=== PATIENT | female | born 1975 | race Caucasian/White ===

== ENCOUNTER 2022-02-16 17:46 | Observation (INO) | payer SELFPAY ==
[~2022-02-16] VITALS: Ht 152.4 cm; Wt 98.4 kg
[2022-02-16 18:58] LABS: BASOPHILS % 0.3 % (0.0-1.0); EOSINOPHILS # (AUTO) 0.1 (0.0-0.4); EOSINOPHILS % 0.5 % (0.0-6.0); HEMATOCRIT 24.1 % (34.2-44.1); LYMPHOCYTES % 15.3 % (18.0-39.1); MEAN CORPUSCULAR HEMOGLOBIN 20.2 pg (28-32); MEAN CORPUSCULAR HGB CONC 26.1 g/dL (31-35); MEAN CORPUSCULAR VOLUME 77.2 fL (81-99); MONOCYTES # (AUTO) 1.2 (0.2-0.8); MONOCYTES % 9.1 % (4.4-11.3); NEUTROPHILS # (AUTO) 9.7 (2.1-6.9); NEUTROPHILS % 74.3 % (38.7-80.0); PLATELET COUNT 777 x10e3/uL (140-360); RED BLOOD COUNT 3.12 x10e6/uL (3.6-5.1); RED CELL DISTRIBUTION WIDTH 19.4 % (11.7-14.4)
[2022-02-16 19:04] LABS: HEMOGLOBIN 6.3 g/dL (12.0-16.0)
[2022-02-16] MEDS ORDERED: SODIUM CHLORIDE 0.9% 250ML 250 ML IV ONE (19:15)
[2022-02-16 19:21] LABS: ALBUMIN 1.8 g/dL (3.5-5.0); ALBUMIN/GLOBULIN RATIO 0.3 (0.8-2.0); ANION GAP 17.1 mmol/L (8-16); CALCIUM 9.5 mg/dL (8.4-10.2); CREATININE, SERUM 0.84 mg/dL (0.57-1.11); POTASSIUM 4.1 mmol/L (3.5-5.1)
[2022-02-16 22:00] VITALS: BP 121/66
[2022-02-16 22:36] VITALS: BP 121/66
[2022-02-16] MEDS ORDERED: CITALOPRAM HBR20 MG PO (22:49)
[2022-02-16 23:07] VITALS: BP 121/66
[2022-02-17] VITALS: BP 107/53
[2022-02-17] MEDS ORDERED: SODIUM CHLORIDE 0.9% 250ML 250 ML IV ONE (00:30)
[2022-02-17] MEDS ORDERED: ACETAMINOPHEN 325 MG TAB PO PRN (00:30)
[2022-02-17 04:00] VITALS: BP_SYST 93; BP_SYST 99; BP_DIAS 53; BP_DIAS 58
[2022-02-17] MEDS ORDERED: IOPAMIDOL 370 MG/ML 100 ML INFUS..BTL INJ ONE (06:39)
[2022-02-17 07:38] VITALS: BP 116/62
[2022-02-17 08:09] LABS: BASOPHILS # (AUTO) 0.1 (0.0-0.1); BASOPHILS % 0.4 % (0.0-1.0); EOSINOPHILS # (AUTO) 0.1 (0.0-0.4); EOSINOPHILS % 0.6 % (0.0-6.0); HEMOGLOBIN 7.6 g/dL (12.0-16.0); LYMPHOCYTES # (AUTO) 1.9 (1.0-3.2); MEAN CORPUSCULAR HEMOGLOBIN 22.8 pg (28-32); MEAN CORPUSCULAR HGB CONC 29.2 g/dL (31-35); MEAN CORPUSCULAR VOLUME 78.1 fL (81-99); MONOCYTES % 8.3 % (4.4-11.3); NEUTROPHILS # (AUTO) 8.9 (2.1-6.9); NEUTROPHILS % 74.1 % (38.7-80.0); PLATELET COUNT 750 x10e3/uL (140-360); RED BLOOD COUNT 3.33 x10e6/uL (3.6-5.1); RED CELL DISTRIBUTION WIDTH 20.2 % (11.7-14.4)
[2022-02-17] MEDS ORDERED: TRAMADOL HCL 50 MG TAB PO PRN (08:15)
[2022-02-17 08:40] LABS: ANION GAP 16.1 mmol/L (8-16); CALCIUM 9.4 mg/dL (8.4-10.2); CREATININE, SERUM 0.77 mg/dL (0.57-1.11); POTASSIUM 4.1 mmol/L (3.5-5.1)
[2022-02-17 08:49] LABS: ANISOCYTOSIS MODERATE; HYPOCHROMASIA MODERATE; MICROCYTOSIS MODERATE; PLATELET ESTIMATE MARKEDLY INCREASED; PLATELET MORPHOLOGY COMMENT NORMAL; RBC MORPHOLOGY COMMENT ABNORMAL
[2022-02-17 08:50] LABS: POLYCHROMASIA FEW
[2022-02-17] MEDS ORDERED: CITALOPRAM HYDROBROMIDE 20 MG TAB PO SCH (09:00)
[2022-02-17 09:11] VITALS: BP 116/62
[2022-02-17 09:27] LABS: FERRITIN 560.39 ng/mL (4.63-204.00)
[2022-02-17] MEDS ORDERED: PANTOPRAZOLE SO40 MG PO (11:05)
[2022-02-17] MEDS ORDERED: FERROUS SULFAT325 MG PO (11:11)
[2022-02-17 11:33] VITALS: BP 115/60
[2022-02-17] MEDS ORDERED: PANTOPRAZOLE SOD 40 MG TABEC PO SCH (16:30)
== END 2022-02-17 12:16 | disposition home or self-care (01) ==
LOC: ER 17:54 → ERHOLD 19:18 → MED/SURG 21:28
PROVIDERS: ADMIT Internal Medicine; ATTEND Internal Medicine
DX: D50.9 Iron deficiency anemia, unspecified (principal); F32.A Depression, unspecified; R91.1 Solitary pulmonary nodule; Z87.891 Personal history of nicotine dependence; E66.01 Morbid (severe) obesity due to excess calories; Z68.41 Body mass index [BMI] 40.0-44.9, adult; Z20.822 Contact with and (suspected) exposure to COVID-19; G25.81 Restless legs syndrome
CPT/HCPCS: 36415 ×2; 71045; 71260; 80048; 80053; 82607; 82728; 82948; 83540; 84466; 85025 ×2; 86850; 86900; 86920; 93005; 94799; 99284; C9113; G0378 ×2; J7050; P9016; Q9967; U0002

== ENCOUNTER 2022-07-04 14:12 | Inpatient (IN) | payer SELFPAY ==
[~2022-07-04] VITALS: Ht 152.4 cm; Wt 79.5 kg
[~2022-07-04 14:12] MED LIST: CITALOPRAM HBR20 MG PO; FERROUS SULFAT325 MG PO; PANTOPRAZOLE SO40 MG PO
[2022-07-04] MEDS ORDERED: SODIUM CHLORIDE 0.9% 1000ML 1,000 ML IV STA (14:40)
[2022-07-04 15:09] LABS: BASOPHILS # (AUTO) 0.1 (0.0-0.1); BASOPHILS % 0.6 % (0.0-1.0); EOSINOPHILS # (AUTO) 0.1 (0.0-0.4); HEMATOCRIT 25.1 % (34.2-44.1); HEMOGLOBIN 6.4 g/dL (12.0-16.0); LYMPHOCYTES # (AUTO) 1.9 (1.0-3.2); LYMPHOCYTES % 21.3 % (18.0-39.1); MEAN CORPUSCULAR HEMOGLOBIN 22.2 pg (28-32); MEAN CORPUSCULAR HGB CONC 25.5 g/dL (31-35); MEAN CORPUSCULAR VOLUME 87.2 fL (81-99); MONOCYTES # (AUTO) 0.3 (0.2-0.8); MONOCYTES % 3.5 % (4.4-11.3); NEUTROPHILS # (AUTO) 6.6 (2.1-6.9); NEUTROPHILS % 72.9 % (38.7-80.0); PLATELET COUNT 524 x10e3/uL (140-360); RED BLOOD COUNT 2.88 x10e6/uL (3.6-5.1)
[2022-07-04 15:24] LABS: ALBUMIN 1.9 g/dL (3.5-5.0); ALBUMIN/GLOBULIN RATIO 0.3 (0.8-2.0); ALKALINE PHOSPHATASE 123 IU/L (40-150); ANION GAP 17.6 mmol/L (8-16); BLOOD UREA NITROGEN 10 mg/dL (7-26); BUN/CREATININE RATIO 12 (6-25); CALCIUM 9.9 mg/dL (8.4-10.2); CARBON DIOXIDE 26 mmol/L (22-29); CHLORIDE 94 mmol/L (98-107); CREATININE, SERUM 0.85 mg/dL (0.57-1.11); GLUCOSE 130 mg/dL (74-118); SODIUM 135 mmol/L (136-145)
[2022-07-04 15:29] LABS: ALANINE AMINOTRANSFERASE < 6 IU/L (0-55)
[2022-07-04 15:30] LABS: CREATINE KINASE < 7 IU/L (29-168)
[2022-07-04] MEDS ORDERED: POTASSIUM CHLORIDE 20 MEQ TAB CR PO NR (15:35)
[2022-07-04 15:36] LABS: POTASSIUM 2.6 mmol/L (3.5-5.1)
[2022-07-04] MEDS ORDERED: KCL 20MEQ/.9 SOD CHL 1,000 ML IV ONE (16:30)
[2022-07-04] MEDS ORDERED: ONDANSETRON HCL INJ 2MG/ML 2ML 2 MG/ML VIAL IV PRN (16:30)
[2022-07-04] MEDS ORDERED: SODIUM CHLORIDE 0.9% 250ML 250 ML ONE (16:57)
[2022-07-04 20:40] VITALS: BP 110/63
[2022-07-04 20:53] VITALS: BP 101/51
[2022-07-04] MEDS ORDERED: FERRETTS325 MG PO (21:24)
[2022-07-04] MEDS ORDERED: MELOXICAM15 MG PO (21:24)
[2022-07-04] MEDS ORDERED: DOCUSATE SODIU100 MG PO (21:24)
[2022-07-04] MEDS ORDERED: MIRTAZAPINE30 MG PO (21:24)
[2022-07-04] MEDS ORDERED: DICLOFENAC SOD100 GM TOP (21:24)
[2022-07-04] MEDS ORDERED: FOLIC ACID0.4 MG PO (22:27)
[2022-07-05 01:02] VITALS: BP 100/53
[2022-07-05 05:25] VITALS: BP 100/55
[2022-07-05 08:00] VITALS: BP_SYST 100; BP_SYST 101; BP_DIAS 55; BP_DIAS 59
[2022-07-05 09:28] LABS: BASOPHILS % 0.3 % (0.0-1.0); EOSINOPHILS # (AUTO) 0.1 (0.0-0.4); EOSINOPHILS % 1.4 % (0.0-6.0); HEMATOCRIT 26.8 % (34.2-44.1); HEMOGLOBIN 7.6 g/dL (12.0-16.0); LYMPHOCYTES # (AUTO) 1.5 (1.0-3.2); LYMPHOCYTES % 19.7 % (18.0-39.1); MEAN CORPUSCULAR HEMOGLOBIN 24.9 pg (28-32); MEAN CORPUSCULAR HGB CONC 28.4 g/dL (31-35); MEAN CORPUSCULAR VOLUME 87.9 fL (81-99); MONOCYTES # (AUTO) 0.4 (0.2-0.8); MONOCYTES % 5.5 % (4.4-11.3); NEUTROPHILS # (AUTO) 5.6 (2.1-6.9); NEUTROPHILS % 72.5 % (38.7-80.0); PLATELET COUNT 290 x10e3/uL (140-360); RED BLOOD COUNT 3.05 x10e6/uL (3.6-5.1); RED CELL DISTRIBUTION WIDTH 16.3 % (11.7-14.4)
[2022-07-05] MEDS ORDERED: HYDRALAZINE HCL 20 MG/ML VIAL IV PRN (09:30)
[2022-07-05] MEDS ORDERED: ACETAMINOPHEN 325 MG TAB PO PRN (09:30)
[2022-07-05] MEDS ORDERED: BENZONATATE 100 MG CAP PO PRN (09:30)
[2022-07-05] MEDS ORDERED: LIDOCAINE 4% PATCH TP PRN (09:30)
[2022-07-05] MEDS ORDERED: DOCUSATE SODIUM 100 MG CAP PO PRN (09:30)
[2022-07-05] MEDS ORDERED: DEXTROSE 50% SYRINGE 50 ML IV PRN (09:30)
[2022-07-05] MEDS ORDERED: POTASSIUM CHLORIDE 20 MEQ TAB CR PO PRN (09:30)
[2022-07-05] MEDS ORDERED: DIPHENHYDRAMINE HCL 25 MG CAP PO PRN (09:30)
[2022-07-05] MEDS ORDERED: POTASSIUM CHLORIDE 20 MEQ TAB CR PO NR (09:45)
[2022-07-05 09:50] LABS: ALBUMIN 1.4 g/dL (3.5-5.0); ALBUMIN/GLOBULIN RATIO 0.3 (0.8-2.0); ALKALINE PHOSPHATASE 86 IU/L (40-150); ANION GAP 11.1 mmol/L (8-16); BLOOD UREA NITROGEN 9 mg/dL (7-26); BUN/CREATININE RATIO 13 (6-25); CALCIUM 8.4 mg/dL (8.4-10.2); CARBON DIOXIDE 24 mmol/L (22-29); CHLORIDE 100 mmol/L (98-107); CREATININE, SERUM 0.72 mg/dL (0.57-1.11); GLUCOSE 142 mg/dL (74-118); POTASSIUM 3.1 mmol/L (3.5-5.1); SODIUM 132 mmol/L (136-145)
[2022-07-05 09:53] LABS: ALANINE AMINOTRANSFERASE < 6 IU/L (0-55)
[2022-07-05] MEDS: FOLIC ACID 1 MG TAB PO SCH (11:00)
[2022-07-05] MEDS: CITALOPRAM HYDROBROMIDE 20 MG TAB PO SCH (11:00)
[2022-07-05] MEDS ORDERED: PANTOPRAZOLE SOD 40 MG TABEC PO SCH (11:00)
[2022-07-05 12:39] VITALS: BP 105/56
[2022-07-05 16:58] VITALS: BP 103/60
[2022-07-05 20:00] VITALS: BP_SYST 103; BP_SYST 95; BP_DIAS 51; BP_DIAS 60
[2022-07-05] MEDS ORDERED: MELATONIN 5 MG TABLET PO PRN (21:00)
[2022-07-05 21:17] LABS: % IRON SATURATION 10 % (15-50); IRON 19 ug/dL (50-170); TOTAL IRON BINDING CAPACITY 182 ug/dL (261-478); TRANSFERRIN 130 mg/dL (180-382)
[2022-07-05] MEDS: MIRTAZAPINE 15 MG TAB PO SCH (21:55)
[2022-07-05] MEDS ORDERED: BISACODYL 5 MG TAB EC PO ONE (23:15)
[2022-07-06] VITALS (8 sets, daily range): BP systolic 91–117; BP diastolic 47–64
[2022-07-06] MEDS ORDERED: BISACODYL 5 MG TAB EC PO ONE ×2 (01:00)
[2022-07-06] MEDS: TRAMADOL HCL 50 MG TAB PO PRN ×3 (01:13→20:03)
[2022-07-06 06:09] LABS: BASOPHILS % 0.2 % (0.0-1.0); EOSINOPHILS # (AUTO) 0.1 (0.0-0.4); EOSINOPHILS % 0.7 % (0.0-6.0); HEMATOCRIT 26.9 % (34.2-44.1); HEMOGLOBIN 7.7 g/dL (12.0-16.0); LYMPHOCYTES # (AUTO) 1.5 (1.0-3.2); LYMPHOCYTES % 16.8 % (18.0-39.1); MEAN CORPUSCULAR HEMOGLOBIN 25.2 pg (28-32); MEAN CORPUSCULAR HGB CONC 28.6 g/dL (31-35); MEAN CORPUSCULAR VOLUME 87.9 fL (81-99); MONOCYTES # (AUTO) 0.5 (0.2-0.8); MONOCYTES % 5.2 % (4.4-11.3); NEUTROPHILS # (AUTO) 6.9 (2.1-6.9); NEUTROPHILS % 76.4 % (38.7-80.0); PLATELET COUNT 290 x10e3/uL (140-360); RED BLOOD COUNT 3.06 x10e6/uL (3.6-5.1); RED CELL DISTRIBUTION WIDTH 16.9 % (11.7-14.4)
[2022-07-06 06:37] LABS: ANION GAP 13.4 mmol/L (8-16); CALCIUM 8.8 mg/dL (8.4-10.2); CREATININE, SERUM 0.69 mg/dL (0.57-1.11); POTASSIUM 3.4 mmol/L (3.5-5.1)
[2022-07-06 07:00] LABS: THYROID STIMULATING HORMONE 1.474 uIU/mL (0.350-4.940)
[2022-07-06] MEDS ORDERED: PANTOPRAZOLE SOD 40 MG TABEC PO SCH (09:00)
[2022-07-06] MEDS: FOLIC ACID 1 MG TAB PO SCH (09:03)
[2022-07-06] MEDS: CITALOPRAM HYDROBROMIDE 20 MG TAB PO SCH (09:03)
[2022-07-06] MEDS: IRON SUCROSE 100 MG in SODIUM CHLORIDE 0.9% 100 ML IV SCH (09:04)
[2022-07-06] MEDS ORDERED: ONDANSETRON HCL 4 MG ORAL DISINTEGRATING TAB SL PRN (10:00)
[2022-07-06] MEDS: MIRTAZAPINE 15 MG TAB PO SCH (20:01)
[2022-07-07] VITALS: BP 96/53
[2022-07-07] MEDS ORDERED: BISACODYL 5 MG TAB EC PO ONE ×3 (00:30→01:30)
[2022-07-07 04:14] VITALS: BP 97/53
[2022-07-07 09:00] VITALS: BP 99/54
[2022-07-07 09:52] VITALS: BP 99/54
[2022-07-07] MEDS: IRON SUCROSE 100 MG in SODIUM CHLORIDE 0.9% 100 ML IV SCH (09:54)
[2022-07-07] MEDS: FOLIC ACID 1 MG TAB PO SCH (09:54)
[2022-07-07] MEDS: CITALOPRAM HYDROBROMIDE 20 MG TAB PO SCH (09:54)
[2022-07-07 11:07] LABS: HEMATOCRIT 29.2 % (34.2-44.1); HEMOGLOBIN 8.1 g/dL (12.0-16.0)
[2022-07-07 12:42] VITALS: BP 104/58
[2022-07-07] MEDS ORDERED: PANTOPRAZOLE SOD 40 MG TABEC PO SCH (21:00)
== END 2022-07-07 14:55 | disposition home or self-care (01) | DRG 812 ==
LOC: ER 14:18 → ERHOLD 16:31 → MED/SURG2 20:31 → OBSVTOIN 07-06 08:53
PROVIDERS: ADMIT Internal Medicine; ATTEND Internal Medicine
PROC: 30233N1 Transfusion of Nonautologous Red Blood Cells into Peripheral Vein, Percutaneous Approach (ICD-10-PCS; principal; 2022-07-04)
DX: D50.9 Iron deficiency anemia, unspecified (principal); E87.6 Hypokalemia; Z90.49 Acquired absence of other specified parts of digestive tract; F32.A Depression, unspecified; K21.9 Gastro-esophageal reflux disease without esophagitis; G25.81 Restless legs syndrome; Z82.49 Family history of ischemic heart disease and other diseases of the circulatory system; Z20.822 Contact with and (suspected) exposure to COVID-19
CPT/HCPCS: 0223U; 36415; 71045; 80048; 80053; 82270; 82550; 82553; 82607; 82746; 82784; 82785; 83540; 83735; 84165; 84443; 84466; 84484; 84702; 85014; 85018; 85025; 85045; 86850; 86900; 86920; 99284; G0378; J1756; J2405; J7030; J7050; P9016